=== PATIENT | male | born 1970 | race Caucasian/White ===

== ENCOUNTER 2016-08-26 07:37 | Day surgery (SDC) | payer BC, OTHER ==
[2016-08-25 14:57] VITALS: BMI 29.5
[2016-08-26] MEDS ORDERED: PROPOFOL 20 ML ONE ×2 (07:45)
[2016-08-26 09:26] VITALS: BP 121/68; PULSE 64; TEMP 98
== END 2016-08-26 09:45 | disposition home or self-care (01) ==
LOC: FASU-ENDO 07:37
PROVIDERS: ATTEND Internal Medicine Gastroenterology
PROC: 0D748ZZ Dilation of Esophagogastric Junction, Via Natural or Artificial Opening Endoscopic (ICD-10-PCS; principal; 2016-08-26 08:33)
DX: K22.2 Esophageal obstruction (principal); R13.10 Dysphagia, unspecified; K20.9 Esophagitis, unspecified

== ENCOUNTER 2020-12-29 22:05 | Emergency (ER) | payer BC, OTHER ==
[2020-12-29] MEDS ORDERED: methylPREDNISolone NA SUCC 1000 MG/8 ML VIAL IVPB ONE (22:21)
[2020-12-29] MEDS ORDERED: methylPREDNISolone NA SUCC 125 MG/2 ML VIAL IVPUSH ONE (22:30)
[2020-12-29 23:40] VITALS: TEMP 98.5; BMI 31.9
[2020-12-30 01:56] VITALS: BP 115/70; PULSE 67
== END 2020-12-30 02:08 | disposition home or self-care (01) ==
LOC: FER 22:05
PROC: 3E033GC Introduction of Other Therapeutic Substance into Peripheral Vein, Percutaneous Approach (ICD-10-PCS; principal; 2020-12-29)
PROC: 3E033GC Introduction of Other Therapeutic Substance into Peripheral Vein, Percutaneous Approach (ICD-10-PCS; 2020-12-29)
DX: T78.40XA Allergy, unspecified, initial encounter (principal)
CPT/HCPCS: 99284-25

== ENCOUNTER 2021-04-17 08:16 | Emergency (ER) | payer BC, OTHER ==
[2021-04-17] MEDS ORDERED: KETOROLAC TROMETHAMINE 30 MG/1 ML VIAL IM ONE (08:23)
[2021-04-17] MEDS ORDERED: KETOROLAC TROMETHAMINE 30 MG/1 ML VIAL ONE (08:27)
[2021-04-17] MEDS ORDERED: LIDOCAINE 5% TOPICAL PATCH ONE (08:27)
[2021-04-17] MEDS ORDERED: LIDOCAINE 5% TOPICAL PATCH TP ONE (08:35)
[2021-04-17 09:16] VITALS: BP 137/87; PULSE 102; TEMP 99.4; BMI 31.5
[2021-04-17] MEDS ORDERED: LIDOCAINE PATCH REMOVAL MC SCH (22:00)
[2021-04-18 13:09] LABS: SARS-CoV-2 NAA Not Detected (Not Detected)
== END 2021-04-17 09:19 | disposition home or self-care (01) ==
LOC: FER 08:16
PROC: 3E0233Z Introduction of Anti-inflammatory into Muscle, Percutaneous Approach (ICD-10-PCS; principal; 2021-04-17)
DX: S29.012A Strain of muscle and tendon of back wall of thorax, initial encounter (principal)
CPT/HCPCS: 71046-TC-FY; 72070-TC-FY; 99284-25; C9803; U0003; U0005

== ENCOUNTER 2021-10-02 14:10 | Emergency (ER) | payer BC, OTHER ==
[2021-10-02 14:21] VITALS: BP 136/82; PULSE 69; TEMP 98.7; BMI 30.1
== END 2021-10-02 15:03 | disposition home or self-care (01) ==
LOC: FER 14:10
DX: K42.9 Umbilical hernia without obstruction or gangrene (principal)
CPT/HCPCS: 99282-25

== ENCOUNTER 2021-10-23 04:16 | Day surgery (SDC) | payer BC, OTHER ==
[2021-10-19 16:14] VITALS: BMI 30.1
[2021-10-23] MEDS ORDERED: PROPOFOL 20 ML ONE ×2 (08:15→10:13)
[2021-10-23] MEDS ORDERED: MIDAZOLAM HCL 2 MG/2 ML SINGLE DOSE VIAL ONE (08:15)
[2021-10-23] MEDS ORDERED: BUPIVACAINE HCL/PF 0.5% (5MG/ML) 10 ML VIAL ONE (08:29)
[2021-10-23] MEDS ORDERED: DEXAMETHASONE SOD PHOSPHATE 4 MG/1 ML VIAL ONE (09:05)
[2021-10-23] MEDS ORDERED: ceFAZolin SODIUM 1 GM VIAL ONE (09:05)
[2021-10-23] MEDS ORDERED: KETOROLAC TROMETHAMINE 30 MG/1 ML VIAL ONE (09:05)
[2021-10-23] MEDS ORDERED: ceFAZolin SODIUM 1 GM VIAL IVPB ONE (09:06)
[2021-10-23] MEDS ORDERED: ACETAMINOPHEN INJECTION 100 ML IVPB ONE (09:28)
[2021-10-23] MEDS ORDERED: BUPIVACAINE HCL/PF 0.5% (5MG/ML) 10 ML VIAL IJ ONE (10:20)
[2021-10-23] MEDS ORDERED: oxyCODONE HCL 5 MG TABLET PO PRN (10:24)
[2021-10-23] MEDS ORDERED: ONDANSETRON 4 MG/2 ML VIAL IVPUSH PRN (10:24)
[2021-10-23] MEDS ORDERED: LACTATED RINGERS SOLUTION 1,000 ML IV SCH (10:30)
[2021-10-23 13:03] VITALS: BP 124/67; PULSE 62; TEMP 97.8
[2021-10-24] MEDS ORDERED: HYDROCHLOROTHIAZIDE 25 MG TABLET (FP) PO SCH (10:00)
[2021-10-24] MEDS ORDERED: PANTOPRAZOLE 40 MG TABLET PO SCH (10:00)
[2021-10-24] MEDS ORDERED: CHOLECALCIFEROL (VIT D3 5000 UNITS) 125 MCG TAB PO SCH (10:00)
[2021-10-24] MEDS ORDERED: LISINOPRIL 20 MG TABLET PO SCH (10:00)
[2021-10-24] MEDS ORDERED: ATORVASTATIN CA 40 MG TABLET (FP) PO SCH (22:00)
== END 2021-10-23 13:13 | disposition home or self-care (01) ==
LOC: JASU-SURG 04:16
PROVIDERS: ATTEND Surgery
PROC: 0WQF0ZZ Repair Abdominal Wall, Open Approach (ICD-10-PCS; principal; 2021-10-23 09:30)
DX: K42.9 Umbilical hernia without obstruction or gangrene (principal)
CPT/HCPCS: 88302-TC; 94760

== ENCOUNTER 2024-03-03 09:41 | Emergency (ER) | payer BC, OTHER ==
[2024-03-03 09:55] VITALS: BP 143/85; PULSE 69; RESP 20; TEMP 98; BMI 29.2
[2024-03-03] MEDS ORDERED: METHOCARBAMOL 500 MG TABLET ONE (10:05)
[2024-03-03] MEDS ORDERED: LIDOCAINE 5% TOPICAL PATCH ONE (10:06)
[2024-03-03] MEDS: METHOCARBAMOL 750 MG TABLET PO ONE (10:13)
[2024-03-03] MEDS: LIDOCAINE 5% TOPICAL PATCH TP ONE (10:13)
[2024-03-03] MEDS ORDERED: diazePAM 5 MG TABLET ONE (10:50)
[2024-03-03] MEDS ORDERED: KETOROLAC TROMETHAMINE 30 MG/1 ML VIAL ONE (10:50)
[2024-03-03] MEDS: KETOROLAC TROMETHAMINE 30 MG/1 ML VIAL IM ONE (10:57)
[2024-03-03] MEDS: diazePAM 5 MG TABLET PO ONE (10:57)
[2024-03-03] MEDS ORDERED: LIDOCAINE PATCH REMOVAL MC SCH (22:00)
== END 2024-03-03 11:37 | disposition home or self-care (01) ==
LOC: FER 09:41
PROC: 3E0133Z Introduction of Anti-inflammatory into Subcutaneous Tissue, Percutaneous Approach (ICD-10-PCS; principal; 2024-03-03)
DX: M54.6 Pain in thoracic spine (principal); M54.50 Low back pain, unspecified; X50.0XXA Overexertion from strenuous movement or load, initial encounter; Y99.0 Civilian activity done for income or pay
CPT/HCPCS: 81003; 87086; 93005; 99284-25